=== PATIENT | male | born 1980 | race Caucasian/White ===

== ENCOUNTER 2018-01-19 17:16 | Emergency (ER) | payer SELFPAY ==
[~2018-01-19] VITALS: Ht 167.6 cm; Wt 88.0 kg
[2018-01-19 17:38] VITALS: BP 131/96
== END 2018-01-19 21:15 | disposition left against medical advice (07) ==
LOC: ER 21:14
DX: M54.5 Low back pain (principal); M79.606 Pain in leg, unspecified; M54.30 Sciatica, unspecified side; Z90.49 Acquired absence of other specified parts of digestive tract; Z53.21 Procedure and treatment not carried out due to patient leaving prior to being seen by health care provider